=== PATIENT | female | born 1990 | race Caucasian/White ===

== ENCOUNTER 2016-09-10 13:35 | Emergency (ER) | payer BC, OTHER ==
[~2016-09-10] VITALS: Ht 152.4 cm; Wt 54.5 kg
[~2016-09-10 13:35] MED LIST: AMT10 PO; ATV/1 PO; DICY10CA55 PO; EFF75 PO; LEVE750T PO; PROM25TA9 PO
[2016-09-10 13:40] VITALS: Ht 152.4 cm; Wt 54.5 kg
[2016-09-10] MEDS ORDERED: IBUPROFEN 600 MG TAB PO STA (13:53)
--- NOTE | 2016-09-10 13:55 | EMERGENCY ROOM VISIT NOTE ---
History First contact with patient: 13:47 Chief Complaint: FLU LIKE SX Stated Complaint: COUGH, STUFFY SEVERE NOSE PAIN History of Present Illness The patient is a 25 year old female who presents to the Emergency Room with complaints of flulike symptoms. The patient states that she has had symptoms for the last 3 day. She reports a frontal headache, arthralgias, myalgias, chills, cough, sinus congestion, sore throat and nausea. She denies any pain in her chest or trouble breathing. She denies any vomiting or diarrhea. She does not know of any sick contacts. Review of Systems A 10 system review of systems was completed with positives and pertinent negatives listed in the HPI. Past Medical/Surgical History Medical Problems: (1) Seizures Family History No significant family history Social History Smoking Status: Current Every Day Smoker Housing Status: lives with family Current/Historical Medications Scheduled Oseltamivir (Tamiflu), 75 MG PO BID Scheduled PRN Lorazepam (Ativan), 1 MG PO DAILY PRN for Anxiety Allergies Coded Allergies: Ketorolac Tromethamine (Verified Allergy, Unknown, unknown, 09/10/16) Kiwi Extract (Verified Allergy, Unknown, unknown, 09/10/16) Meperidine (Unverified Allergy, Unknown, hives, 09/10/16) Uncoded Allergies: ADHESIVE (BANDAIDS) (Allergy, Unknown, unknown, 01/04/15) Physical Exam Vital Signs Date Time Temp Pulse Resp B/P Pulse Ox O2 Delivery O2 Flow Rate FiO2 09/10/16 15:35 38.5 119 18 89/41 96 Room Air 95/51 09/10/16 15:05 39.3 125 20 94/43 100 Room Air 09/10/16 13:40 39.3 132 18 111/63 96 Room Air Physical Exam VITALS: Vitals are noted on the nurse's note and reviewed by myself. Vital signs stable. The patient is febrile with a temperature 39.3C GENERAL: This is 25-year-old female, in no acute distress, nondiaphoretic, well- developed well-nourished. SKIN: The skin was without rashes, erythema, edema, or bruising. There is no tenting of the skin. Capillary reflex less than 2 seconds. HEAD: Normocephalic atraumatic. EARS: External auditory canals clear, tympanic membranes pearly vargas without erythema or effusion bilaterally. EYES: Pupils equal round and reactive to light and accommodation. Conjunctivae without injection, sclerae without icterus. Extraocular movements intact. NOSE: Patent, turbinates inflamed with clear discharge. MOUTH: Mucous membranes moist. Tonsils are not enlarged. There is mild posterior pharyngeal erythema. Uvula midline. Airway patent. Tongue does not deviate. NECK: Supple without nuchal rigidity. Cervical spine is nontender. No JVD. HEART: Regular rate and rhythm without murmurs gallops or rubs. LUNGS: Clear to auscultation bilaterally without wheezes, rales or rhonchi. No retractions or accessory muscle use. MUSCULOSKELETAL: No muscle atrophy, erythema, or edema noted. Full range of motion in all extremities. Normal gait. Strength 5/5 throughout. NEURO: Patient was alert and oriented to person place and time. No focal neurological deficits. Medical Decision & Procedures ER Provider Diagnostic Interpretation: CHEST 2 VIEWS ROUTINE CLINICAL HISTORY: cough, fever COMPARISON STUDY: No previous studies for comparison. FINDINGS: The cardiac and mediastinal contours are normal. There is no evidence of focal pulmonary consolidation. There is no evidence of failure. No pleural effusions are visualized.[ IMPRESSION: No active disease in the chest. Laboratory Results Test 09/10/16 14:20 Influenza Type A Antigen POS for Influ A (NEG) Influenza Type B Antigen Neg for Influ B (NEG) Medications Administered Medications (Trade) Dose Ordered Sig/Dinora Route Start Time Stop Time Status Last Admin Dose Admin Ibuprofen (Motrin Tab) 600 mg NOW STAT PO 09/10/16 13:53 09/10/16 13:54 DC 09/10/16 14:20 600 MG Acetaminophen (Tylenol Tab) 1,000 mg NOW STAT PO 09/10/16 15:08 09/10/16 15:09 DC 09/10/16 15:22 1,000 MG ED Course The patient was seen and examined. She was initially febrile and tachycardic. She was given 600 mg oral ibuprofen and 1 g of oral Tylenol. Her temperature and her heart rate improved. The patient was noted to be slightly hypotensive but when reviewing previous visits, the patient has had a similar blood pressure in the past. The patient has flulike symptoms. She does not have any neck pain, nuchal rigidity or meningismus to suggest meningitis. She tested positive for influenza A. Her symptoms started just under 48 hours ago. I discussed the possibility of starting Tamiflu and the patient would like to try the medication. A prescription for Tamiflu was sent to the pharmacy. She is encouraged to continue Tylenol and ibuprofen. She was given a note for work. She should return to the emergency Department with any worsening symptoms. The case was discussed with Dr. Gudino who agrees with the assessment and treatment plan. Medical Decision The differential diagnosis includes pneumonia, influenza, viral illness, bronchitis, dehydration, meningitis, among others Impression Primary Impression: Influenza A Departure Information Dispostion Home / Self-Care Condition GOOD Prescriptions Oseltamivir (Tamiflu) 75 Mg Cap 75 MG PO BID for 5 Days, #10 CAP Prov: Monique Jeffery PA-C 09/10/16 Referrals No Doctor, Assigned (PCP) Forms HOME CARE DOCUMENTATION FORM, IMPORTANT VISIT INFORMATION, Work Instructions Return To Work: 3 days Patient Instructions ED Flu, [facility] [employer] Additional Instructions Ibuprofen 600 mg every 6-8 hours for moderate pain/fever Tylenol 1 g every 4-6 hours for pain/fever; no more than 4 g of Tylenol in 24 hours Rest and stay well-hydrated Return with any worsening symptoms Otherwise, follow up with your family doctor later this week or early next week
--- NOTE | 2016-09-10 14:47 | DIAGNOSTIC IMAGING REPORT ---
CHEST 2 VIEWS ROUTINE CLINICAL HISTORY: cough, fever COMPARISON STUDY: No previous studies for comparison. FINDINGS: The cardiac and mediastinal contours are normal. There is no evidence of focal pulmonary consolidation. There is no evidence of failure. No pleural effusions are visualized.[ IMPRESSION: No active disease in the chest. Electronically signed by: Brendan Macedo M.D. 09/10/2016 2:46 PM Dictated Date/Time: 09/10/2016 2:46 PM
[2016-09-10] MEDS ORDERED: ACETAMINOPHEN 500 MG TAB PO STA (15:08)
[2016-09-10 15:35] VITALS: BP 95/51; PULSE 119; TEMP 38.5; O2SAT 96
[2016-09-10] MEDS ORDERED: OSEL75CA12 PO (15:35)
== END 2016-09-10 16:00 | disposition home or self-care (01) ==
LOC: C.EDB 13:37
DX: J11.1 Influenza due to unidentified influenza virus with other respiratory manifestations (principal); F17.210 Nicotine dependence, cigarettes, uncomplicated

== ENCOUNTER 2017-04-24 13:19 | Emergency (ER) | payer OTHER ==
[~2017-04-24] VITALS: Ht 152.4 cm; Wt 59.6 kg
[~2017-04-24 13:19] MED LIST changes: -AMT10 PO; -DICY10CA55 PO; -EFF75 PO; -LEVE750T PO; -PROM25TA9 PO
[2017-04-24 13:27] VITALS: TEMP 37.1; Ht 152.4 cm; Wt 59.6 kg
--- NOTE | 2017-04-24 14:14 | DIAGNOSTIC IMAGING REPORT ---
L ANKLE MIN 3 VIEWS ROUTINE, L TIBIA/FIBULA 2 VIEWS ROUTINE HISTORY: 26 years-old Female fall; L ankle and mid fibula pain acute left leg and ankle pain COMPARISON: None available TECHNIQUE: 3 views of the left ankle and 2 views of the left tibia and fibula FINDINGS: ANKLE: Mild anterolateral soft tissue swelling about the ankle. No acute fracture, dislocation or significant degenerative changes. No osteochondral defect of the talar dome. TIBIA/FIBULA: No acute fracture, dislocation or significant degenerative changes. Negative for opaque foreign body. IMPRESSION: 1. Mild anterolateral soft tissue swelling about the ankle. 2. No acute fracture of the left ankle, tibia or fibula. The above report was generated using voice recognition software. It may contain grammatical, syntax or spelling errors. Electronically signed by: Vinod Kurtz M.D. 04/24/2017 2:13 PM Dictated Date/Time: 04/24/2017 2:11 PM
[2017-04-24 14:47] VITALS: BP 120/73; PULSE 102; O2SAT 96
--- NOTE | 2017-04-24 21:29 | EMERGENCY ROOM VISIT NOTE ---
ED Visit Note First contact with patient: 13:28 Chief Complaint: I hurt my left ankle. History of Present Illness: Ms. Mg is a 26-year-old white female who ambulates into the ED accompanied by male friend complaining of left lateral ankle and left lateral lower leg pain. Patient reports approximately one hour ago she was carrying some folding chairs downstairs and when she got to the last step she missed the step and twisted her ankle. She reports since that time she's been having left lateral ankle pain and left lateral lower leg pain. Currently she describes her pain as a sharp sensation over the mid fibula and over the anterior aspect of the left lateral malleolus. She rates her discomfort 5/10. Her pain is nonradiating. Her pain worsens with palpation and minimally with ambulation. She has not identified any alleviating factors related to the pain. She has not taken any medications for pain prior to arrival at the hospital. She denies any associated symptoms including hip pain , knee pain, foot pain, leg weakness/numbness/tingling. Additionally she denies any previous significant injuries or surgeries to the ankle or foot. Review of Systems: As noted above in history of present illness. Past Medical History: Bronchitis, pneumonia, seizure disorder, kidney stones, status post section, cholecystectomy, tonsillectomy, adenoidectomy and multiple orthopedic surgeries. Current Medications: Patient denies. Allergies to Medications: Demerol, Toradol. Social History: Patient is currently employed; she feels safe in her home environment; she admits to tobacco and alcohol use Physical Examination: Vital Signs: Date Time Temp Pulse Resp B/P (MAP) Pulse Ox O2 Delivery O2 Flow Rate FiO2 04/24/17 14:47 102 16 120/73 96 04/24/17 13:27 37.1 90 18 102/68 99 Room Air GENERAL: 26-year-old female in mild distress due to pain, nontoxic-appearing, afebrile and hemodynamically stable. NEUROLOGICAL: Awake, alert and oriented to person, place and time. Answering questions appropriately and following commands. SKIN: Warm, dry and pink. No soft tissue trauma noted. LEFT LOWER EXTREMITY: No gross bony deformity. No tenderness in the hip or knee. Mild tenderness over the mid fibula without bony deformity, bony crepitus , swelling or ecchymosis. . Mild tenderness over the anterior aspect of the lateral malleolus with mild swelling but no bony deformity, bony crepitus or ecchymosis. No ligamentous laxity but pain elicited with inversion. No tenderness over the Achilles tendon, the calcaneus with the rest of the foot. Full range of motion in plantar flexion and dorsiflexion against resistance. Throughout the foot the skin was warm and pink and capillary refill is brisk. She was able to distinguish light sensations through all dermatomes. ED Course: Patient is assessed as noted above. Patient's medication list was reviewed. Patient was offered pain medication and refused. Left Tibia/Fibula X-Rays: Were read by myself and the radiologist showing no acute fractures. Left Ankle X-Rays: Were read by myself and the radiologist showing no acute fractures or dislocations. Patient was placed in a gel splint and on nonweightbearing crutches. Patient was educated about today's findings and instructed on her treatment plan ; she verbalized understanding and agreement with this plan. Clinical Impression: Left lower leg pain. Left ankle pain. Decision-Making: Initially my differential diagnosis I considered fibula fracture, ankle fracture, ankle dislocation, ligamentous sprain and other causes. Disposition: Patient discharged home in stable condition accompanied by her ; prior to departure she was reassessed and subjectively reported she was feeling the same. Plan: Comfort measures were discussed with the patient including rest, ice, elevation , splint and crutch use. Patient was encouraged to follow-up with orthopedics if no better in 7-10 days. Patient was encouraged return ED for worsening/uncontrolled pain, uncontrolled swelling, foot weakness/numbness/tingling or any new/concerning symptoms.
== END 2017-04-24 14:48 | disposition home or self-care (01) ==
LOC: C.EDB 13:21 → C.EDD 14:48
DX: M79.662 Pain in left lower leg (principal); M25.572 Pain in left ankle and joints of left foot; G40.909 Epilepsy, unspecified, not intractable, without status epilepticus; F17.200 Nicotine dependence, unspecified, uncomplicated; Z87.442 Personal history of urinary calculi

== ENCOUNTER 2017-11-09 11:19 | Outpatient (CLI) | payer OTHER ==
[~2017-11-09] VITALS: Ht 152.4 cm; Wt 59.9 kg
[2017-11-09] MEDS ORDERED: LACTATED RINGER'S 1000ML 1,000 ML IV ONE (12:13)
[2017-11-09] MEDS ORDERED: LACTATED RINGER'S 1000ML 1,000 ML IV SCH (12:13)
[2017-11-09] MEDS ORDERED: PROMETHAZINE HCL INJ 25 MG in SODIUM CHLORIDE 0.9% 50ML 50 ML IV PRN (12:15)
[2017-11-09] MEDS ORDERED: ONDANSETRON 4 MG TAB PO PRN (12:15)
[2017-11-09] MEDS ORDERED: RANITIDINE HCL 150 MG TAB PO ONE (12:15)
[2017-11-09] MEDS ORDERED: ACETAMINOPHEN 325 MG TAB PO PRN (12:15)
[2017-11-09] MEDS ORDERED: ONDANSETRON INJ 2 MG/ML 2 ML VIAL IV PRN (12:15)
[2017-11-09 12:46] LABS: BASO % 0.1 %; BASO ABS # 0.01 K/uL (0-0.2); EOS % 1.2 %; EOS ABS # 0.14 K/uL (0-0.5); HEMATOCRIT 34.5 % (37-47); IG# 0.08 K/uL (0.00-0.02); LYMPH ABS # 2.04 K/uL (1.2-3.4); MEAN CELL VOLUME 92.2 fL (80-100); MEAN CORPUSCULAR HEMOGLOBIN 32.1 pg (25-34); MEAN CORPUSCULAR HGB CONC 34.8 g/dl (32-36); MONO % 4.6 %; MONO ABS # 0.52 K/uL (0.11-0.59); NEUT % 75.4 %; NEUT ABS # 8.52 K/uL (1.4-6.5); PLATELET COUNT 206 K/uL (130-400); RED CELL DISTRIBUTION WIDTH CV 14.3 % (11.5-14.5); RED CELL DISTRIBUTION WIDTH SD 48.3 fL (36.4-46.3); WHITE BLOOD COUNT 11.31 K/uL (4.8-10.8)
[2017-11-09 13:10] LABS: ALBUMIN 3.1 gm/dl (3.4-5.0); ALT/SGPT 11 U/L (12-78); AST/SGOT 15 U/L (15-37); BLOOD UREA NITROGEN 6 mg/dl (7-18); CALCIUM 8.2 mg/dl (8.5-10.1); CARBON DIOXIDE 23 mmol/L (21-32); CREATININE 0.47 mg/dl (0.60-1.20); GLUCOSE 73 mg/dl (70-99); LIPASE 75 U/L (73-393); POTASSIUM 3.6 mmol/L (3.5-5.1); SODIUM 138 mmol/L (136-145)
[2017-11-09 13:15] LABS: ALKALINE PHOSPHATASE 79 U/L (45-117); TOTAL PROTEIN 6.6 gm/dl (6.4-8.2)
[2017-11-09] MEDS ORDERED: PRENTAB26 PO (13:17)
[2017-11-09 13:21] VITALS: Ht 152.4 cm; Wt 59.9 kg
[2017-11-09] MEDS ORDERED: ONDA4TAB46 PO (13:55)
--- NOTE | 2017-11-09 13:56 | Discharge Instructions ---
Discharge Instructions Date of Service November 09, 2017. Admission Reason for Admission: Back Pain,Nausea, Pre Term Discharge Discharge Diagnosis / Problem: N&V, back pain Discharge Goals Goal(s): Continuing OB care Activity Recommendations Activity Limitations: as noted below ACTIVITY RECOMMENDATIONS: See Labor Sheet. SPECIAL CARE INSTRUCTIONS: Call Doctor if: * Regular contractions every 5 minutes or greater than contractions in one hour. * Bleeding * Water breaks or is leaking * Decreased movement * Fever >100.4 degrees F * Pain not relieved by routine measures or pain medication ordered. FOLLOW UP VISIT: Return to Labor and Delivery on for /call for appointment time . Follow-up Visit with: When: . Current Hospital Diet Patient's current hospital diet: Clear Liquid Diet Discharge Diet Recommended Diet: Clear Liquid Diet Pending Studies Studies pending at discharge: no Work Instructions Return To Work: 1 day Medical Emergencies . Who to Call and When: Medical Emergencies: If at any time you feel your situation is an emergency, please call 911 immediately. . Non-Emergent Contact Non-Emergency issues call your: Specialist Call Non-Emergent contact if: temperature is above 100.5, your pain is not controlled, your pain is worsening, your pain is unusual for you, your pain is concerning you, wound has increased drainage . . "Provider Documentation" section prepared by Edgard Lama. .
== END 2017-11-09 15:50 | disposition home or self-care (01) ==
LOC: C.OPB 11:19 → C.LD 11:21 → C.OPB 15:50
PROVIDERS: ATTEND Obstetrics & Gynecology
DX: O99.89 Other specified diseases and conditions complicating pregnancy, childbirth and the puerperium (principal); R11.0 Nausea; M54.9 Dorsalgia, unspecified; Z3A.24 24 weeks gestation of pregnancy; O99.612 Diseases of the digestive system complicating pregnancy, second trimester; K58.9 Irritable bowel syndrome, unspecified; K21.9 Gastro-esophageal reflux disease without esophagitis